=== PATIENT | female | born 1960 | race Caucasian/White ===

== ENCOUNTER 2018-02-05 12:14 | Emergency (ER) | payer OTHER ==
[2018-02-05 12:48] VITALS: TEMP 98; BMI 25.0
--- NOTE | 2018-02-05 12:48 | PDOC ---
History of Present Illness - General Stated Complaint: BACK INJURY Time Seen by Provider: 02/05/18 12:34 - History of Present Illness Initial Comments: 02/05/18 13:38 "The patient is a 57 year old female, with no significant past medical history who presents to the emergency department with neck and back pain after wooden partition fell on her. Patient was seated at a viewing when a wooden room divider (5 ft long, ~50 pounds) fell behind her and hit her neck. Pt did not get knocked over, did not hit the ground. Pt denies head injury. Patient experienced immediate sharp and throbbing neck pain radiating to lower back. EMS was called and C collar was placed. Patient denies urine/bowel incontinence, numbness/weakness/tingling of extremities. Patient denies chest pain, palpitations, diaphoresis, headache. Patient denies fever, chills, abdominal pain, nausea, vomit, diarrhea or constipation. Patient denies dysuria, frequency, urgency or hematuria. Patient denies sick contacts or recent travel. Allergies: NKA Past surgical history: Social history: denies etoh, smoking, recreational drug use PCP: Dr. Olivia Epps " Past History - Past Medical History Allergies/Adverse Reactions: Allergies Allergy/AdvReac Type Severity Reaction Status Date / Time No Known Allergies Allergy Verified 02/05/18 12:57 COPD: No Other medical history: DENIES - Suicide/Smoking/Psychosocial Hx Smoking History: Unknown if ever smoked Hx Alcohol Use: No Drug/Substance Use Hx: No Review of Systems - Review of Systems Comments:: 02/05/18 13:39 "GENERAL/CONSTITUTIONAL: No fever or chills. No weakness. HEAD, EYES, EARS, NOSE AND THROAT: No change in vision. No ear pain or discharge. No sore throat. CARDIOVASCULAR: No chest pain or shortness of breath. RESPIRATORY: No cough, wheezing, or hemoptysis. GASTROINTESTINAL: No nausea, vomiting, diarrhea or constipation. GENITOURINARY: No dysuria, frequency, or change in urination. MUSCULOSKELETAL: +neck pain. +back pain. No joint or muscle swelling or pain. SKIN: No rash NEUROLOGIC: No headache, vertigo, loss of consciousness, or change in strength/ sensation. ENDOCRINE: No increased thirst. No abnormal weight change. HEMATOLOGIC/LYMPHATIC: No anemia, easy bleeding, or history of blood clots. ALLERGIC/IMMUNOLOGIC: No hives or skin allergy. " *Physical Exam - Vital Signs Last Vital Signs Temp Pulse Resp BP Pulse Ox 98 F 84 18 149/84 97 02/05/18 12:30 02/05/18 12:30 02/05/18 12:30 02/05/18 12:30 02/05/18 12:30 - Physical Exam Comments: 02/05/18 13:13 "GENERAL: Awake, alert, and fully oriented, in no acute distress. HEAD: No signs of trauma EYES: PERRLA, EOMI, sclera anicteric, conjunctiva clear ENT: Auricles normal inspection, hearing grossly normal, nares patent, oropharynx clear without exudates. Moist mucosa NECK: Nontender, no stepoffs, Normal ROM, supple, no lymphadenopathy, JVD, or masses BACK: + tenderness upper thoracic and lower lumbar spine, no stepoffs LUNGS: Breath sounds equal, clear to auscultation bilaterally. No wheezes, and no crackles HEART: Regular rate and rhythm, normal S1 and S2, no murmurs, rubs or gallops ABDOMEN: Soft, nontender, normoactive bowel sounds. No guarding, no rebound. No masses EXTREMITIES: Normal range of motion, no edema. No clubbing or cyanosis. No cords, erythema, or tenderness NEUROLOGICAL: Cranial nerves II through XII intact. 5/5 strength and sensation in all extremities, Normal speech, normal gait, normal cerebellar function SKIN: Warm, Dry, normal turgor, no rashes or lesions noted. " ED Treatment Course - RADIOLOGY Radiology Studies Ordered: Category Date Time Status CERVICAL SPINE CT W/O CONTR [CT] Stat CT Scan 02/05/18 12:[address] WITHOUT CONTRAST [CT] Stat CT Scan 02/05/18 12:[address] W/O CONTRAST [CT] Stat CT Scan 02/05/18 12:[address] W/O CONTRAST [CT] Stat CT Scan 02/05/18 12:34 Ordered CHEST X-RAY PORTABLE* [RAD] Stat Radiology 02/05/18 12:36 Ordered PELVIS [RAD] Stat Radiology 02/05/18 12:36 Ordered Medical Decision Making - Medical Decision Making 02/05/18 12:46 57 F with neck and back pain after wooden partition fell onto her. Pt with midline tenderness of upper thoracic and lower lumbar spine. No stepoffs but will obtain CT to r/o fx. Pelvis stable, no evidence of extremity injury. No sign of closed head injury. - CT head/C/T/L-spine - Chest, pelvis XR - Pain control 02/05/18 16:55 CTs and XRs all negative Pt reassessed - C collar cleared, pt able to range neck fully without pain. Pt ambulatory in ED with steady gait. Pt is well appearing, with normal vitals. Clinically stable for DC at this time. I discussed the physical exam findings, ancillary test results and final diagnoses with the patient. I answered all of the patient's questions. The patient was satisfied with the care received and felt comfortable with the discharge plan and treatment plan. The patient agrees to follow up with the primary care physician within 24-72 hours. *DC/Admit/Observation/Transfer Diagnosis at time of Disposition: Back pain - Discharge Dispostion Disposition: HOME - Referrals Referrals: Olivia Vargas MD [Primary Care Provider] - Michael Koch MD [Staff Physician] - - Patient Instructions Printed Discharge Instructions: DI for Thoracic Back Pain Additional Instructions: Take tylenol or motrin as needed for pain. For severe pain, take one percocet. Even though your CT scans and X rays were normal today, we cannot rule out ligament or muscle injuries. If you continue to have pain you will need to follow up with an orthopedist for further evaluation. Call the number provided to make an appointment. If you experience any worsening neck pain, weakness or numbness in your arms or legs, or any other concerning symptoms, return to the ER immediately. - Post Discharge Activity - Attestations Physician Attestion: 02/05/18 16:59 I, Dr. Michael Schuler MD, attest that this document has been prepared under my direction and personally reviewed by me in its entirety. I further attest, that it accurately reflects all work, treatment, procedures and medical decision -making performed by me.
[2018-02-05 17:20] VITALS: BP 107/69; PULSE 69
== END 2018-02-05 17:15 | disposition home or self-care (01) ==
LOC: JER 12:14
DX: S19.89XA Other specified injuries of other specified part of neck, initial encounter (principal); S29.8XXA Other specified injuries of thorax, initial encounter; S39.82XA Other specified injuries of lower back, initial encounter; W20.8XXA Other cause of strike by thrown, projected or falling object, initial encounter; Y93.89 Activity, other specified; Y92.89 Other specified places as the place of occurrence of the external cause; Y99.8 Other external cause status
CPT/HCPCS: 70450-TC; 71045-TC-FY; 72125-TC; 72128-TC; 72131-TC; 72170-TC-FY; 99282-25